=== PATIENT | male | born 1935 ===

== ENCOUNTER 2019-03-04 20:37 | Emergency (ER) | payer OTHER ==
[~2019-03-04] VITALS: Ht 167.6 cm; Wt 61.2 kg
[2019-03-04] MEDS ORDERED: ALLOPURINOL300 MG (20:47)
[2019-03-04] MEDS ORDERED: ARICEPT10 MG (20:47)
[2019-03-04] MEDS ORDERED: VASOTEC2.5 MG (20:48)
[2019-03-05] MEDS ORDERED: MOBIC15 MG PO (04:25)
== END 2019-03-05 04:39 | disposition home or self-care (01) ==
LOC: ER 20:37
DX: I86.1 Scrotal varices (principal); N44.2 Benign cyst of testis; N50.812 Left testicular pain